=== PATIENT | male | born 1970 | race Caucasian/White ===

== ENCOUNTER 2017-11-13 12:38 | Observation (INO) | payer OTHER ==
[~2017-11-13] VITALS: Ht 188 cm; Wt 82.0 kg
[2017-11-13 12:41] VITALS: BP 185/92; PULSE 94; RESP 15; TEMP 98; O2SAT 100
--- NOTE | 2017-11-13 13:10 | PD ---
HPI Chief Complaint: Chest Pain Time Seen by Provider: 13:01 Travel History International Travel<30 days: No Contact w/Intl Traveler<30days: No Traveled to known affect area: No History of Present Illness HPI 46yo M with no PMH presents to the ED with c/o chest pain since this morning. Feels like someone is standing on his chest which he has never felt before. Associated with tingling in left hand and sob. Denies any n/v, abdominal pain. Denies any previous similar complaints or cardiac work up. PFSH Social History Tobacco Use: No Allergies-Medications (Allergen,Severity, Reaction): Coded Allergies: No Known Allergies (Unverified , 11/13/17) Reported Meds & Prescriptions Reported Meds & Active Scripts Active Reported Amoxicillin-Clavulanate 875-125 mg Tab 875 Mg PO BID not for use in CrCl <30 mL/minute Prednisone 5 Mg Tab 5 Mg PO BID Review of Systems Except as stated in HPI: all other systems reviewed are Neg Physical Exam Narrative GEN: 46yo M not in distress. SKIN: Warm and dry. HEAD: Normocephalic, atraumatic. CV: S1, S2. Lungs: CTA B/L, equal breath sounds. Abd: soft, NT/ND. Ext: No lower extremity edema. Neuro: No focal neurologic deficits. Data Data Last Documented VS Vital Signs Date Time Temp Pulse Resp B/P (MAP) Pulse Ox O2 Delivery O2 Flow Rate FiO2 11/13/17 12:41 98.0 94 15 185/92 (123) 100 Orders Orders Electrocardiogram (11/13/17 13:08) Basic Metabolic Panel (Bmp) (11/13/17 13:08) Complete Blood Count With Diff (11/13/17 13:08) Magnesium (Mg) (11/13/17 13:08) Prothrombin Time / Inr (Pt) (11/13/17 13:08) Act Partial Throm Time (Ptt) (11/13/17 13:08) Troponin I (11/13/17 13:08) Chest, Single Ap (11/13/17 13:08) Admit Order (Ed Use Only) (11/13/17 15:44) Labs Laboratory Tests Test 11/13/17 14:00 White Blood Count 7.2 TH/MM3 Red Blood Count 4.60 MIL/MM3 Hemoglobin 13.6 GM/DL Hematocrit 38.7 % Mean Corpuscular Volume 84.1 FL Mean Corpuscular Hemoglobin 29.6 PG Mean Corpuscular Hemoglobin Concent 35.2 % Red Cell Distribution Width 13.0 % Platelet Count 261 TH/MM3 Mean Platelet Volume 7.2 FL Neutrophils (%) (Auto) 93.3 % Lymphocytes (%) (Auto) 2.9 % Monocytes (%) (Auto) 3.3 % Eosinophils (%) (Auto) 0.0 % Basophils (%) (Auto) 0.5 % Neutrophils # (Auto) 6.7 TH/MM3 Lymphocytes # (Auto) 0.2 TH/MM3 Monocytes # (Auto) 0.2 TH/MM3 Eosinophils # (Auto) 0.0 TH/MM3 Basophils # (Auto) 0.0 TH/MM3 CBC Comment DIFF FINAL Differential Comment Prothrombin Time 10.1 SEC Prothromb Time International Ratio 1.0 RATIO Activated Partial Thromboplast Time 24.8 SEC Blood Urea Nitrogen 9 MG/DL Creatinine 1.00 MG/DL Random Glucose 140 MG/DL Calcium Level 8.8 MG/DL Magnesium Level 2.1 MG/DL Sodium Level 140 MEQ/L Potassium Level 4.2 MEQ/L Chloride Level 109 MEQ/L Carbon Dioxide Level 26.9 MEQ/L Anion Gap 4 MEQ/L Estimat Glomerular Filtration Rate 81 ML/MIN Troponin I LESS THAN 0.02 NG/ML MDM Medical Decision Making Medical Screen Exam Complete: Yes Emergency Medical Condition: Yes Differential Diagnosis ACS vs. GERD vs. musculoskeletal pain Narrative Course 46yo M here with atypical chest pain since this morning. Labs reviewed, no leukocytosis. BMP unremarkable. Troponin negative. CXR negative. Will admit to chest pain center for serial EKG and cardiac enzymes since he has never had this before. Diagnosis Primary Impression: Chest pain, atypical Admitting Information Admitting Physician Requests: Lee Ann Garg DO Nov 13, 2017 13:10
--- NOTE | 2017-11-13 13:38 | RADRPT ---
EXAM DATE/TIME: 11/13/2017 13:22 [facility] COMPARISON: No previous studies available for comparison. INDICATIONS : Chest pain and shortness of breath today. MEDICAL HISTORY : None. SURGICAL HISTORY : None. ENCOUNTER: Initial ACUITY: 1 day PAIN SCORE: 7/10 LOCATION: Bilateral chest FINDINGS: A single view of the chest demonstrates the lungs to be symmetrically aerated without evidence of mas s, infiltrate or effusion. The cardiomediastinal contours are unremarkable. Osseous structures are intact. CONCLUSION: No acute disease. Los Lake MD FACR on November 13, 2017 at 13:36 Board Certified Radiologist. This report was verified electronically.
[2017-11-13] MEDS ORDERED: AMOX875T2 PO (13:46)
[2017-11-13] MEDS ORDERED: PRED5TAB PO (13:46)
[2017-11-13 14:12] LABS: AUTOMATED NEUTROPHIL # 6.7 TH/MM3 (1.8-7.7); BASOPHIL % 0.5 % (0.0-2.0); HEMATOCRIT 38.7 % (39.0-51.0); HEMOGLOBIN 13.6 GM/DL (13.0-17.0); LYMPH % 2.9 % (9.0-44.0); LYMPHOCYTE # 0.2 TH/MM3 (1.0-4.8); MEAN CELL VOLUME 84.1 FL (80.0-100.0); MEAN CORPUSCULAR HEMOGLOBIN 29.6 PG (27.0-34.0); MEAN CORPUSCULAR HGB CONC 35.2 % (32.0-36.0); MEAN PLATELET VOLUME 7.2 FL (7.0-11.0); MONO % 3.3 % (0.0-8.0); MONOCYTE # 0.2 TH/MM3 (0-0.9); NEUT % 93.3 % (16.0-70.0); PLATELET COUNT 261 TH/MM3 (150-450); WHITE BLOOD COUNT 7.2 TH/MM3 (4.0-11.0)
[2017-11-13 14:22] LABS: PROTHROMBIN TIME - PATIENT 10.1 SEC (9.8-11.6)
[2017-11-13 15:23] LABS: BICARBONATE 26.9 MEQ/L (21.0-32.0); BLOOD UREA NITROGEN 9 MG/DL (7-18); CALCIUM 8.8 MG/DL (8.5-10.1); CHLORIDE 109 MEQ/L (98-107); GLOMERULAR FILTRATION RATE 81 ML/MIN (>89); GLUCOSE,RANDOM 140 MG/DL (74-106); MAGNESIUM 2.1 MG/DL (1.5-2.5); SODIUM (NA) 140 MEQ/L (136-145); TROPONIN I LESS THAN 0.02 NG/ML (0.02-0.05)
--- NOTE | 2017-11-13 16:20 | HHI.HP ---
HPI Primary Care Physician No Primary Care Physician Chief Complaint Chest pain History of Present Illness This is a 46-year-old male that presents to ED to be evaluated for chest discomfort. States he developed a tightness in the left chest this morning while lying in bed. He states he was short of breath. He noticed some numbness rating down his left arm. States has been intermittent since. Last 30 seconds to a minute but keeps recurring. Found nothing in particular bring on the discomfort. Denies nausea or diaphoresis. States he has had a cough 2 days. States he has had clear phlegm. Has not noticed fever. He went to an urgent care center yesterday for these symptoms and was given Augmentin and prednisone. States his daughter has similar URI symptoms. Denies history of CAD, cannot recall ever having a stress test. Denies history of hypertension but states his checks his blood pressure at home and sometimes his blood pressure readings are higher. Review of Systems General: Patient denies fevers, chills, and recent travel HEENT: Patient denies headache, sore throat, difficulty swallowing. Cardiovascular: Has the chest discomfort as mentioned above. Denies sensation of heart beating rapidly or irregularly. No syncope. Respiratory: Clear productive cough. Shortness of breath. Denies inspirational chest discomfort. Denies coughing wheezing or hemoptysis. GI: Patient denies nausea, vomiting, diarrhea, abdominal pain, bloody stools. Musculoskeletal: Patient denies joint pain or edema. Denies calf pain or edema. Neurovascular: Patient denies numbness, tingling, weakness in extremities. Denies headache. Endocrine: Denies polyuria and polydipsia. Hematologic: Denies easy bruising. Skin: Denies rash or itching. Past Family Social History Allergies: Coded Allergies: No Known Allergies (Unverified , 11/13/17) Past Medical History Denies being diagnosed hypertension, hyperlipidemia, diabetes, or CAD. Past Surgical History Noncontributory. Reported Medications Reported Meds & Active Scripts Active Reported Amoxicillin-Clavulanate 875-125 mg Tab 875 Mg PO BID not for use in CrCl <30 mL/minute Prednisone 5 Mg Tab 5 Mg PO BID Family History Denies family history of CAD. Social History Lifetime non-smoker. Occasional beer. Denies illicit drugs. 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 He is with 2 children. Physical Exam Vital Signs Vital Signs Date Time Temp Pulse Resp B/P (MAP) Pulse Ox O2 Delivery O2 Flow Rate FiO2 11/13/17 12:41 98.0 94 15 185/92 (123) 100 Physical Exam GENERAL: This is a well-nourished, well-developed patient, in no apparent distress. Patient speaks in clear complete sentences. Patient is pleasant. HEENT: Head is atraumatic and normocephalic. Neck is supple without lymphadenopathy and trachea is midline. No JVD or carotid bruits. CARDIOVASCULAR: Regular rate and rhythm without murmurs, gallops, or rubs. RESPIRATORY: Clear to auscultation. Breath sounds equal bilaterally. No wheezes , rales, or rhonchi. Chest wall is nontender. No use of accessory muscles. GASTROINTESTINAL: Abdomen is nontender, nondistended. Abdomen soft. No obvious pulsatile mass or bruit. No CVA tenderness. Strong femoral pulses bilaterally. Normal bowel sounds in all quadrants. MUSCULOSKELETAL: Patient is moving upper and lower extremities freely. No calf tenderness or edema, no Homans sign. Strong pulses in upper and lower extremities. NEUROLOGICAL: Patient is alert and oriented. Cranial nerves 2-12 are grossly intact. No focal deficits and speech is clear. SKIN: No rash and turgor is normal. Laboratory Laboratory Tests Test 11/13/17 14:00 White Blood Count 7.2 Red Blood Count 4.60 Hemoglobin 13.6 Hematocrit 38.7 Mean Corpuscular Volume 84.1 Mean Corpuscular Hemoglobin 29.6 Mean Corpuscular Hemoglobin Concent 35.2 Red Cell Distribution Width 13.0 Platelet Count 261 Mean Platelet Volume 7.2 Neutrophils (%) (Auto) 93.3 Lymphocytes (%) (Auto) 2.9 Monocytes (%) (Auto) 3.3 Eosinophils (%) (Auto) 0.0 Basophils (%) (Auto) 0.5 Neutrophils # (Auto) 6.7 Lymphocytes # (Auto) 0.2 Monocytes # (Auto) 0.2 Eosinophils # (Auto) 0.0 Basophils # (Auto) 0.0 CBC Comment DIFF FINAL Differential Comment Prothrombin Time 10.1 Prothromb Time International Ratio 1.0 Activated Partial Thromboplast Time 24.8 Blood Urea Nitrogen 9 Creatinine 1.00 Random Glucose 140 Calcium Level 8.8 Magnesium Level 2.1 Sodium Level 140 Potassium Level 4.2 Chloride Level 109 Carbon Dioxide Level 26.9 Anion Gap 4 Estimat Glomerular Filtration Rate 81 Troponin I LESS THAN 0.02 Result Diagram: 11/13/17 1400 11/13/17 1400 Imaging Last 48 hours Impressions Chest X-Ray 11/13/17 1308 Signed Impressions: Service Date/Time: Monday, November 13, 2017 13:22 - CONCLUSION: No acute disease. Los Lake MD FACR Course Initial EKG is sinus rhythm, rate of 82, incomplete right bundle branch block, no significant ST segment depressions or elevations. Caprini VTE Risk Assessment Caprini VTE Risk Assessment: No/Low Risk (score <= 1) Caprini Risk Assessment Model Point Value = 1 Point Value = 2 Point Value = 3 Point Value = 5 Age 41-60 Minor surgery BMI > 25 kg/m2 Swollen legs Varicose veins or History of unexplained or recurrent spontaneous Oral contraceptives or hormone replacement Sepsis (< 1 month) Serious lung disease, including pneumonia (< 1 month) Abnormal pulmonary function Acute myocardial infarction Congestive heart failure (< 1 month) History of inflammatory bowel disease Medical patient at bed rest Age 61-74 Arthroscopic surgery Major open surgery (> 45 min) Laparoscopic surgery (> 45 min) Malignancy Confined to bed (> 72 hours) Immobilizing plaster cast Central venous access Age >= 75 History of VTE Family history of VTE Factor V Leiden Prothrombin [id number] Lupus anticoagulant Anticardiolipin antibodies Elevated serum homocysteine Heparin-induced thrombocytopenia Other congenital or acquired thrombophilia Stroke (< 1 month) Elective arthroplasty Hip, pelvis, or leg fracture Acute spinal cord injury (< 1 month) Prophylaxis Regimen Total Risk Factor Score Risk Level Prophylaxis Regimen 0-1 Low Early ambulation 2 Moderate Order ONE of the following: *Sequential Compression Device (SCD) *Heparin 5000 units SQ BID 3-4 Higher Order ONE of the following medications: *Heparin 5000 units SQ TID *Enoxaparin/Lovenox 40 mg SQ daily (WT < 150 kg, CrCl > 30 mL/min) *Enoxaparin/Lovenox 30 mg SQ daily (WT < 150 kg, CrCl > 10-29 mL/min) *Enoxaparin/Lovenox 30 mg SQ BID (WT < 150 kg, CrCl > 30 mL/min) AND/OR *Sequential Compression Device (SCD) 5 or more Highest Order ONE of the following medications: *Heparin 5000 units SQ TID (Preferred with Epidurals) *Enoxaparin/Lovenox 40 mg SQ daily (WT < 150 kg, CrCl > 30 mL/min) *Enoxaparin/Lovenox 30 mg SQ daily (WT < 150 kg, CrCl > 10-29 mL/min) *Enoxaparin/Lovenox 30 mg SQ BID (WT < 150 kg, CrCl > 30 mL/min) AND *Sequential Compression Device (SCD) Assessment and Plan Assessment and Plan * Atypical chest pain: Patient will continue to have serial cardiac enzymes and EKGs for ruling out purposes. He will be seen by Dr. James Tang of cardiology in the chest pain center and likely have a stress test if he rules out. He will be discharged home with instructions to [facility] if stress test is nonischemic. Patient return to ED for interval issues Patient is stable at this time. He is agreeable to this plan. Dennis Monahan Nov 13, 2017 16:20
[2017-11-13] MEDS ORDERED: ACETAMINOPHEN 500 MG CPLT PO PRN (16:30)
[2017-11-13] MEDS ORDERED: ACETAMINOPHEN/HYDROcodone 325 MG/7.5 MG TAB PO PRN (16:30)
[2017-11-13] MEDS ORDERED: ALPRAZolam 0.25 MG TAB PO PRN (16:30)
[2017-11-13] MEDS ORDERED: ONDANSETRON HCL 4 MG/2 ML VIAL IV PUSH PRN (16:30)
[2017-11-13 16:57] VITALS: BP 155/88; PULSE 75; RESP 20; O2SAT 96
[2017-11-13] MEDS: PANTOPRAZOLE SOD 40 MG DELAYED RELEASE TAB PO SCH (17:03)
[2017-11-13 17:34] VITALS: BP 150/84; PULSE 60; RESP 18; TEMP 97.9; O2SAT 96
[2017-11-13 18:05] VITALS: PULSE 73
[2017-11-13 18:08] LABS: TROPONIN I LESS THAN 0.02 NG/ML (0.02-0.05)
[2017-11-13 19:48] VITALS: BP 140/83; PULSE 74; RESP 18; TEMP 98.4; O2SAT 97
[2017-11-13 20:00] VITALS: O2SAT 98
[2017-11-13] MEDS: predniSONE 5 MG TAB PO SCH (20:28)
[2017-11-13] MEDS: AMOXICILLIN/CLAVULANATE K 875 MG TAB PO SCH (20:28)
[2017-11-13 21:23] LABS: TROPONIN I LESS THAN 0.02 NG/ML (0.02-0.05)
[2017-11-14 00:09] VITALS: BP 131/82; PULSE 67; RESP 17; TEMP 98.4; O2SAT 97
[2017-11-14 04:16] VITALS: BP 139/79; PULSE 69; RESP 16; TEMP 97.7; O2SAT 98
[2017-11-14 07:51] VITALS: BP 130/88; PULSE 70; RESP 18; TEMP 98.2; O2SAT 98
[2017-11-14 08:04] VITALS: PULSE 66
[2017-11-14] MEDS ORDERED: ASPIRIN 325 MG TAB PO SCH (09:00)
--- NOTE | 2017-11-14 09:13 | HHI.DCPOC ---
Discharge Care Plan Diagnosis: (1) Chest pain, atypical (2) URI (upper respiratory infection) Goals to Promote Your Health * To prevent worsening of your condition and complications * To maintain your health at the optimal level Directions to Meet Your Goals Take your medications as prescribed Follow your dietary instruction Follow activity as directed Keep your appointments as scheduled Take your immunizations and boosters as scheduled If your symptoms worsen call your PCP, if no PCP go to Urgent Care Center or Emergency Room Smoking is Dangerous to Your Health. Avoid second hand smoke Call the 24-hour hour crisis hotline for domestic abuse at Dennis Monahan Nov 14, 2017 09:13
[2017-11-14] MEDS: PANTOPRAZOLE SOD 40 MG DELAYED RELEASE TAB PO SCH (09:30)
[2017-11-14] MEDS: AMOXICILLIN/CLAVULANATE K 875 MG TAB PO SCH (09:30)
[2017-11-14] MEDS: predniSONE 5 MG TAB PO SCH (09:30)
--- NOTE | 2017-11-15 16:10 | EKG ---
Date Performed: 11/13/2017 Time Performed: 17:09:18 PTAGE: 46 years EKG: Sinus rhythm INCOMPLETE RIGHT BUNDLE BRANCH BLOCK NONSPECIFIC T-WAVE ABNORMALITY BORDERLINE ECG Since PREVIOUS TRACING , no significant change noted PREVIOUS TRACIN11/13/2017 13.51 DOCTOR: Lay Sun Interpretating Date/Time 11/15/2017 16:09:33
--- NOTE | 2017-11-15 16:10 | EKG ---
Date Performed: 11/13/2017 Time Performed: 13:51:38 PTAGE: 46 years EKG: Sinus rhythm INCOMPLETE RIGHT BUNDLE BRANCH BLOCK BORDERLINE ECG NO PREVIOUS TRACING DOCTOR: Lay Sun Interpretating Date/Time 11/15/2017 16:09:20
--- NOTE | 2017-11-15 16:12 | EKG ---
Date Performed: 11/13/2017 Time Performed: 20:02:36 PTAGE: 46 years EKG: Sinus rhythm INCOMPLETE RIGHT BUNDLE BRANCH BLOCK BORDERLINE ECG Since PREVIOUS TRACING , no significant change noted PREVIOUS TRACIN11/13/2017 17.09 DOCTOR: Lay Sun Interpretating Date/Time 11/15/2017 16:11:44
--- NOTE | 2017-11-15 16:14 | TR ---
Date Performed: 11/14/2017 Time Performed: 08:47:48 DOCTOR: Lay Sun DRUG LIST: CLINICAL HISTORY: CHEST PAIN REASON FOR TEST: REASON FOR ENDING: OBSERVATION: CONCLUSION: CARMELO PROTOCOL. NO CP. TEST STOPPED AFTER EXCEEDING GOAL HR SECONDARY TO SOB AND LEG FATIGUE.Maximum VD=714 % Max HR Achieved=96.0% Maximum FW=318/84 Total Exercise Time=9:00 COMMENTS: No ischemia
== END 2017-11-14 10:25 | disposition home or self-care (01) ==
LOC: NEPC 12:38 → NEDA 15:46 → NEPFCDU 17:15
PROVIDERS: ADMIT Internal Medicine Interventional Cardiology; ATTEND Internal Medicine Interventional Cardiology
DX: R07.89 Other chest pain (principal); J06.9 Acute upper respiratory infection, unspecified; I45.10 Unspecified right bundle-branch block
CPT/HCPCS: 71045; 80048; 82550; 83735; 84484; 85025; 85610; 85730; 93005; 93017; 99285; G0378; J7512